=== PATIENT | male | born 2005 | race Caucasian/White ===

== ENCOUNTER 2024-07-21 13:43 | Observation (INO) ==
--- NOTE | 2024-07-21 14:03 | Emergency Department Note ---
Impression & Plan Acute appendicitis, Abdominal pain, RLQ, Leukocytosis, Fever ED Provider Note HISTORY OF PRESENT ILLNESS: Patient is a 18-year-old male presenting with right lower quadrant abdominal pain and fever. Patient reports that yesterday he was having pain around his bellybutton that his since seem to go to his right lower quadrant. He states he also has pain into his right low back. He states the pain was constant since yesterday. He developed a fever at noon. He denies take any Tylenol and ibuprofen today. He denies any history of abdominal surgeries. Denies any chest pain or shortness of breath. He does report nausea. He had vomiting and diarrhea yesterday with the onset of symptoms. Last p.o. intake was about 1 hour prior to arrival at around 1300. ROS: as above PHYSICAL EXAM: Constitutional: Patient appears in no acute distress. HENT: Head: Normocephalic and atraumatic. Eyes: EOMI, PERRL Mouth/Throat: Mucous membranes moist. Neck: Trachea midline. Neck supple. Cardiovascular: Tachycardic with regular rhythm. No murmurs, rubs or gallops. Intact distal pulses. Pulmonary/Chest: No respiratory distress. Breath sounds clear and equal bilaterally. No wheezes or rales. Abdominal: Abdomen soft, no rebound or guarding. RLQ TTP Musculoskeletal: No edema, tenderness or deformity noted. Skin: Warm and dry. No rash, erythema, pallor or cyanosis Psychiatric: Appropriate mood and affect for situation. Neurological: Alert and keenly responsive. CN II-XII grossly intact, moving all extremities equally and fully. MDM: - Vitals signs showed tachycardia and fever. - History obtained via patient. History as above. - Chronic conditions affecting care: none - Differential diagnoses include, but are not limited to: Aortic aneurysm; appendicitis; diverticulitis; inguinal hernia; testicular torsion; ureteral calculi - Order placed for continuous cardiac monitoring. At this time, monitor showed rate of 75 bpm with normal sinus rhythm, per my interpretation. - External medical records reviewed. - Laboratory workup interpreted by myself showed leukocytosis (WBC 16.59) with neutrophilic predominance; normal PT/INR; stable electrolytes - UA negative for infection. Noted to have ketonuria. - Viral respiratory panel negative - CT abdomen/pelvis with IV contrast showed evidence of acute appendicitis with an appendicolith, per my interpretation. Radiology agrees with acute appendicitis with the appendicolith measuring 1.4 cm. Note that there is air within the appendiceal lumen secondary to necrosis. - Patient given 4 mg IV zofran, 500 cc NS and 1g IV tylenol. Given IV zosyn for antibiotic coverage. - Discussed case with Kalie Jacques PA-C on for general surgery at 15:00. She reviewed case with her attending, Dr. Linton. They will be down to evaluate the patient. - Patient to be taken to OR for appendectomy with general surgery service. ASSESSMENT AND PLAN: Diagnosis: acute appendicitis; Right lower quadrant abdominal pain; leukocytosis; fever Plan: to OR Past Med/Surg History Problem List (Updated 07/21/24 @ 15:39 by Alban Linton MD) Fever (Acute) Leukocytosis (Acute) Abdominal pain, RLQ (Acute) Acute appendicitis (Acute) Social History Smoking Status: Never smoker Preferred Language: Kazakh Feels Safe at Home: Yes Allergies Allergies Allergy/AdvReac Type Severity Reaction Status Date / Time No Known Allergies Allergy Unverified 07/21/24 14:09 Home Meds Home Medications Medication Instructions Recorded Confirmed No Known Home Medications 07/21/24 07/21/24 Results & Data (ED) Vital Signs Vital Signs - 24 hr 07/21/24 13:47 07/21/24 14:09 07/21/24 14:21 Temperature 37.2 C 38.6 C H Temperature Source Temporal Artery Scan Oral Pulse Rate 119 H 86 Pulse Rate [Apical] 93 H Pulse Rhythm Regular Respiratory Rate 18 18 20 Respiratory Effort / Characteristics Non-Labored Spontaneous Non-Labored Respiratory Depth Normal Normal Respiratory Pattern Regular Blood Pressure 121/77 Blood Pressure [Left Arm] 102/60 Blood Pressure Mean 91 Blood Pressure Mean [Left Arm] 74 Blood Pressure Position Sitting Pulse Oximetry 94 96 97 Oxygen Delivery Method Room Air Room Air Room Air Sepsis Recent Fever Within 48 Hours No Sepsis New/Unexplained Change in Mental Status No Sepsis Action Taken by Nursing No Action Required 07/21/24 15:00 07/21/24 15:22 07/21/24 15:30 Temperature 38.0 C H Temperature Source Oral Pulse Rate 75 Pulse Rate [Apical] 82 79 Pulse Rhythm Respiratory Rate 18 18 Respiratory Effort / Characteristics Respiratory Depth Normal Respiratory Pattern Blood Pressure Blood Pressure [Left Arm] 121/86 118/70 Blood Pressure Mean Blood Pressure Mean [Left Arm] 97 86 Blood Pressure Position Pulse Oximetry 97 97 Oxygen Delivery Method Room Air Room Air Sepsis Recent Fever Within 48 Hours Sepsis New/Unexplained Change in Mental Status Sepsis Action Taken by Nursing Laboratory Data 07/21/24 14:01 07/21/24 14:01 Lab Results 07/21/24 07/21/24 07/21/24 Range/Units 13:56 14:01 14:02 WBC 16.59 H (4.8-10.8) K/ul RBC 4.80 (4.70-6.10) M/uL Hgb 14.3 (14.0-18.0) g/dl Hct 41.6 L (42.0-52.0) % MCV 86.7 (80.0-100.0) fL MCH 29.8 (25.0-34.0) pg MCHC 34.4 (32.0-36.0) g/dL RDW Std Deviation 39.4 (36.4-46.3) fL RDW Coeff of Dwayne 12.4 (11.5-14.5) % Plt Count 260 (130-400) K/uL MPV 10.1 (9.4-12.4) fL Immature Gran % (Auto) 0.4 % Neut % (Auto) 87.4 % Lymph % (Auto) 3.7 % [place] % (Auto) 8.4 % Eos % (Auto) 0.0 % Baso % (Auto) 0.1 % Neut # (Auto) 14.50 H (1.40-6.50) K/uL Lymph # (Auto) 0.62 L (1.20-3.40) K/uL [place] # (Auto) 1.39 H (0.11-0.59) K/uL Eos # (Auto) 0.00 (0.00-0.50) K/uL Baso # (Auto) 0.02 (0.00-0.20) K/uL Immature Gran # (Auto) 0.06 (0.01-0.20) K/uL PT 12.0 (9.0-12.0) Seconds INR 1.1 (0.9-1.1) Sodium 138 (136-145) mmol/L Potassium 3.9 (3.5-5.1) mmol/L Chloride 100 (98-107) mmol/L Carbon Dioxide 27 (21-32) mmol/L Anion Gap 11 (3-11) BUN 20 (6-23) mg/dl Creatinine 1.08 (0.6-1.4) mg/dl Est Cr Clr Drug Dosing 94.6 ml/min eGFR 100.75 BUN/Creatinine Ratio 18.5 (10-20) Glucose 116 H (70-99(Fasting)) mg/dl Lactate 1.4 (0.4-2.0) mmol/L Calcium 10.2 (8.6-10.3) mg/dl Total Bilirubin 1.2 H (0.2-1.0) mg/dl AST 19 (13-39) U/L ALT 14 (7-52) U/L Alkaline Phosphatase 58 (34-104) U/L Total Protein 8.6 H (6.0-8.3) gm/dl Albumin 5.5 H (3.4-5.0) gm/dl Globulin 3.1 (2.5-4.0) gm/dl Albumin/Globulin Ratio 1.8 (0.9-2) Lipase 8 L (11-82) U/L Urine Color Yellow Urine Appearance Clear (Clear) Urine pH 7.0 (4.5-7.5) Ur Specific [place] 1.033 H (1.000-1.030) Urine Protein 1+ H (Negative) Urine Glucose (UA) Negative (Negative) Urine Ketones 3+ H (Negative) Urine Blood Negative (Negative) Urine Nitrite Negative (Negative) Urine Bilirubin Negative (Negative) Urine Urobilinogen Negative (Negative) Ur Leukocyte Esterase Negative (Negative) Urine WBC (Auto) 0-5 (0-5) /hpf Urine RBC (Auto) 0-2 (0-2) /hpf U Hyaline Cast (Auto) 0-2 (0-2) /lpf U Epithel Cells (Auto) 0-2 (0-2) /hpf Urine Bacteria (Auto) None Seen (None Seen) Adenovirus (PCR) Not Detected (NotDetected) B. pertussis DNA (PCR) Not Detected (NotDetected) B.parapertussis DNA PCR Not Detected (NotDetected) C. pneumoniae DNA (PCR) Not Detected (NotDetected) Coronavirus OC43 (PCR) Not Detected (NotDetected) Coronavirus HKU1 (PCR) Not Detected (NotDetected) Coronavirus 229E (PCR) Not Detected (NotDetected) SARS-CoV-2 (PCR) Not Detected (NotDetected) Coronavirus NL63 (PCR) Not Detected (NotDetected) Human Metapneumovir PCR Not Detected (NotDetected) Influenza Type A (PCR) Not Detected (NotDetected) Influenza Type B (PCR) Not Detected (NotDetected) M. pneumoniae (PCR) Not Detected (NotDetected) Parainfluenza 1 (PCR) Not Detected (NotDetected) Parainfluenza 2 (PCR) Not Detected (NotDetected) Parainfluenza 3 (PCR) Not Detected (NotDetected) Parainfluenza 4 (PCR) Not Detected (NotDetected) RSV (PCR) Not Detected (NotDetected) Entero/Rhino (PCR) Not Detected (NotDetected) Administered Medications Discontinued Medications Acetaminophen (Ofirmev) 1,000 mg in 100 mls @ 400 mls/hr IV NOW STA Stop: 07/21/24 14:17 Last Infusion: 07/21/24 14:36 Dose: Infused Documented By: Admin: 07/21/24 14:10 Dose: 400 mls/hr Documented By: AURY Sodium Chloride (Nss) 500 mls @ 999 mls/hr IV .Q31M ONE Stop: 07/21/24 14:33 Last Infusion: 07/21/24 15:10 Dose: Infused Documented By: Admin: 07/21/24 14:10 Dose: 999 mls/hr Documented By: AURY Piperacillin Sod/Tazobactam Sod (Zosyn) 4.5 gm in 100 mls @ 200 mls/hr IV NOW ONE; Protocol Stop: 07/21/24 15:25 Last Admin: 07/21/24 15:06 Dose: 200 mls/hr Documented By: CRAIG Ioversol (Optiray 320 100ml) 93 ml IV ONCE ONE Stop: 07/21/24 14:50 Last Admin: 07/21/24 14:49 Dose: 93 ml Documented By: ARIANA Ondansetron HCl (Ondansetron Inj 2 Mg/Ml 2 Ml Vial) 4 mg IV NOW STA Stop: 07/21/24 14:04 Last Admin: 07/21/24 14:10 Dose: 4 mg Documented By: AURY Imaging Data Radiologist's Impression: Abdomen/Pelvis CT 07/21/24 14:[address] WITH IV CONTRAST CT DOSE: 421.44 mGy.cm HISTORY: Acute right lower quadrant abdominal pain RLQ abd pain TECHNIQUE: Multiaxial CT images of the abdomen and pelvis were performed following the IV administration of rOptiray, A dose lowering technique was utilized adhering to the principles of ALARA. COMPARISON STUDY: None. FINDINGS: The lung bases are clear. The liver, spleen, gallbladder, pancreas, kidneys, and adrenal glands are within normal limits. Urinary bladder wall thickening with partial distention. Trace pelvic ascites. Probable thickening of the base of the cecum. There is a 1.4 cm proximal appendicolith. The appendix is markedly dilated measuring up to 2 cm with wall thickening and hyperemia with adjacent inflammatory stranding. The appendix is air and fluid filled. No drainable fluid collections. There is an additional amount luminal subcentimeter appendicolith. No suspicious lytic or blastic osseous lesions. IMPRESSION: 1. Acute appendicitis with appendicoliths measuring up to 1.4 cm. Air within the appendiceal lumen is likely secondary to necrosis. 2. No bowel obstruction, pneumoperitoneum or abscess. 3. Trace reactive ascites. ACT 112: Negative or not required by law. The above report was generated using voice recognition software. It may contain grammatical, syntax or spelling errors. Electronically signed by: Meño Correa M.D. 07/21/2024 3:22 PM Discharge Plan Visit Data Chief Complaint: Flu Like Symptoms Stated Complaint: FEVER, VOMITING, ABD/BACK PAIN ED Provider: Anabela Milligan Discharge Problem: Acute appendicitis, Abdominal pain, RLQ, Leukocytosis, Fever Patient Disposition: Admitted As Inpatient Discharge Instructions Interventions: ED Discharge Assessment Last Done: 07/21/24 15:50 Discharge Problem: Acute appendicitis Qualifiers: Acute appendicitis type: with localized peritonitis Appendicitis gangrene presence: with gangrene Appendicitis perforation presence: without perforation A ppendicitis abscess presence: without abscess Qualified Code(s): K35.31 - Acute appendicitis with localized peritonitis and gangrene, without perforation
[2024-07-21] MEDS: ONDANSETRON INJ 2 MG/ML 2 ML VIAL IV STA (14:10)
[2024-07-21] MEDS: SODIUM CHLORIDE 0.9% 500 ML IV ONE (14:10)
[2024-07-21] MEDS: ACETAMINOPHEN 1,000 MG/100 ML VIAL IV STA (14:10)
[2024-07-21 14:15] LABS: Appearance Urine Clear (Clear); Bacteria Urine Automated None Seen (None Seen); Bilirubin Urine Negative (Negative); Blood Urine Negative (Negative); Cast Urine Automated 0-2 /lpf (0-2); Color Urine Yellow; Epithelial Cell Urine Auto 0-2 /hpf (0-2); Glucose Urine UA Negative (Negative); Ketones Urine 3+ (Negative); Leukocyte Esterase Urine Negative (Negative); Nitrite Urine Negative (Negative); Protein Urine 1+ (Negative); RBC Urine Automated 0-2 /hpf (0-2); Specific Gravity Urine 1.033 (1.000-1.030); Urobilinogen Urine Negative (Negative); WBC Urine Automated 0-5 /hpf (0-5)
[2024-07-21 14:20] LABS: Basophils # (auto) 0.02 K/uL (0.00-0.20); Basophils % (auto) 0.1 %; Hematocrit (blood only) 41.6 % (42.0-52.0); Hemoglobin 14.3 g/dl (14.0-18.0); Immature Granulocytes # (auto) 0.06 K/uL (0.01-0.20); Immature Granulocytes % (auto) 0.4 %; Lymphocytes # (auto) 0.62 K/uL (1.20-3.40); Lymphocytes % (auto) 3.7 %; Mean Corpuscular Hemoglobin 29.8 pg (25.0-34.0); Mean Corpuscular Hgb Conc 34.4 g/dL (32.0-36.0); Mean Corpuscular Volume 86.7 fL (80.0-100.0); Mean Platelet Volume 10.1 fL (9.4-12.4); Monocytes # (auto) 1.39 K/uL (0.11-0.59); Monocytes % (auto) 8.4 %; Neutrophils % (auto) 87.4 %; Platelet Count 260 K/uL (130-400); RDW Coefficient of Variation 12.4 % (11.5-14.5); RDW Standard Deviation 39.4 fL (36.4-46.3); White Blood Count 16.59 K/ul (4.8-10.8)
[2024-07-21 14:43] LABS: Albumin Globulin Ratio 1.8 (0.9-2); Albumin Level 5.5 gm/dl (3.4-5.0); BUN Creatinine Ratio 18.5 (10-20); Bilirubin,Total 1.2 mg/dl (0.2-1.0); Calcium 10.2 mg/dl (8.6-10.3); Creatinine Clr Calc Pharmacy 94.6 ml/min; Globulin 3.1 gm/dl (2.5-4.0); Potassium 3.9 mmol/L (3.5-5.1); Total Protein 8.6 gm/dl (6.0-8.3)
[2024-07-21 14:44] LABS: INR 1.1 (0.9-1.1)
[2024-07-21] MEDS: OPTIRAY 320 100ml IV ONE (14:49)
[2024-07-21] MEDS: PIPERACILLIN/TAZOBACTAM 4.5 GM/100 ML BAG IV ONE (15:06)
[2024-07-21 15:18] LABS: Adenovirus PCR Not Detected (NotDetected); Bordetella parapertussis PCR Not Detected (NotDetected); Bordetella pertussis PCR Not Detected (NotDetected); Chlamydia pneumoniae PCR Not Detected (NotDetected); Coronavirus 229E PCR Not Detected (NotDetected); Coronavirus CoV-2 (COVID19)PCR Not Detected (NotDetected); Coronavirus HKU1 PCR Not Detected (NotDetected); Coronavirus NL63 PCR Not Detected (NotDetected); Coronavirus OC43PCR Not Detected (NotDetected); Human Metapneumovirus PCR Not Detected (NotDetected); Influenza A PCR Not Detected (NotDetected); Influenza B PCR Not Detected (NotDetected); Mycoplasma pneumoniae PCR Not Detected (NotDetected); Parainfluenza Virus 1 PCR Not Detected (NotDetected); Parainfluenza Virus 2 PCR Not Detected (NotDetected); Parainfluenza Virus 3 PCR Not Detected (NotDetected); Parainfluenza Virus 4 PCR Not Detected (NotDetected); Respiratory Syncytial VirusPCR Not Detected (NotDetected); Rhinovirus/Enterovirus PCR Not Detected (NotDetected)
--- NOTE | 2024-07-21 15:23 | CT Scan Report ---
ABDOMEN AND PELVIS CT WITH IV CONTRAST CT DOSE: 421.44 mGy.cm HISTORY: Acute right lower quadrant abdominal pain RLQ abd pain TECHNIQUE: Multiaxial CT images of the abdomen and pelvis were performed following the IV administrat ion of rOptiray, A dose lowering technique was utilized adhering to the principles of ALARA. COMPARISON STUDY: None. FINDINGS: The lung bases are clear. The liver, spleen, gallbladder, pancreas, kidneys, and adrenal gl ands are within normal limits. Urinary bladder wall thickening with partial distention. Trace pelvic ascites. Probable thickening of the base of the cecum. There is a 1.4 cm proximal appendicolith. The appendix is markedly dilated measuring up to 2 cm with wall thickening and hyperemia with adjacent in flammatory stranding. The appendix is air and fluid filled. No drainable fluid collections. There is an additional amount luminal subcentimeter appendicolith. No suspicious lytic or blastic osseous lesi ons. IMPRESSION: 1. Acute appendicitis with appendicoliths measuring up to 1.4 cm. Air within the appendiceal lumen is likely secondary to necrosis. 2. No bowel obstruction, pneumoperitoneum or abscess. 3. Trace reactive ascites. ACT 112: Negative or not required by law. The above report was generated using voice recognition software. It may contain grammatical, syntax o r spelling errors. Electronically signed by: Meño Correa M.D. 07/21/2024 3:22 PM
--- NOTE | 2024-07-21 15:38 | History & Physical Report ---
Date of Service July 21, 2024 Assessment & Plan (1) Acute appendicitis: Plan 18-year-old gentleman with acute appendicitis. We discussed the risks and benefits of a laparoscopic appendectomy. All his questions were answered and he is agreeable to proceed. We will take him to the operating room at the earliest convenience. History of Present Illness Primary Care Provider: [facility] 18-year-old Gentleman with a 1 day history of severe right-sided abdominal pain. He did have nausea and vomiting yesterday. Positive fever today. He has not eaten anything today. CT scan demonstrates acute appendicitis with large appendicolith. Allergies Allergy/AdvReac Type Severity Reaction Status Date / Time No Known Allergies Allergy Unverified 07/21/24 14:09 Home Medications Medication Instructions Recorded Confirmed Type No Known Home Medications 07/21/24 07/21/24 History Past Med/Surg History Problem List (Updated 07/21/24 @ 15:39 by Ablan Linton MD) Fever (Acute) Leukocytosis (Acute) Abdominal pain, RLQ (Acute) Acute appendicitis (Acute) Social History Smoking Status: Never smoker Preferred Language: Arabic Feels Safe at Home: Yes Review of Systems Review of Systems: All systems reviewed & are unremarkable except as noted in HPI & below Physical Exam Constitutional: WD/WN, vitals as above Eyes: PERRL, conjunctivae normal, anicteric sclerae Neck: trachea midline, no thyromegaly Respiratory: normal respiratory effort; no respiratory distress and no labored breathing Cardiovascular: Rate/Rhythm: regular rate and regular rhythm Gastrointestinal (Abdomen): Inspection/Auscultation: abdomen normal to inspection; abdomen not distended Percussion/Palpation: + abdomen tender ( RLQ) and abdomen soft; no guarding and abdomen not rigid Skin: no rashes, warm and dry Psychiatric: A+Ox3, euthymic affect Results & Data Results & Data Vital Signs (Past 12 Hours) Vital Signs Temp Pulse Pulse Resp BP BP Pulse Ox 07/21/24 15:22 75 07/21/24 15:00 38.0 C H 82 18 121/86 97 07/21/24 14:21 86 20 97 07/21/24 14:09 38.6 C H 93 H 18 102/60 96 07/21/24 13:47 37.2 C 119 H 18 121/77 94 O2 Del Method 07/21/24 15:22 07/21/24 15:00 Room Air 07/21/24 14:21 Room Air 07/21/24 14:09 Room Air 07/21/24 13:47 Room Air Laboratory Results 07/21/24 07/21/24 07/21/24 Range/Units 14:02 14:01 13:56 WBC 16.59 H (4.8-10.8) K/ul RBC 4.80 (4.70-6.10) M/uL Hgb 14.3 (14.0-18.0) g/dl Hct 41.6 L (42.0-52.0) % MCV 86.7 (80.0-100.0) fL MCH 29.8 (25.0-34.0) pg MCHC 34.4 (32.0-36.0) g/dL RDW Std Deviation 39.4 (36.4-46.3) fL RDW Coeff of Dwayne 12.4 (11.5-14.5) % Plt Count 260 (130-400) K/uL MPV 10.1 (9.4-12.4) fL Immature Gran % (Auto) 0.4 % Neut % (Auto) 87.4 % Lymph % (Auto) 3.7 % [place] % (Auto) 8.4 % Eos % (Auto) 0.0 % Baso % (Auto) 0.1 % Neut # (Auto) 14.50 H (1.40-6.50) K/uL Lymph # (Auto) 0.62 L (1.20-3.40) K/uL [place] # (Auto) 1.39 H (0.11-0.59) K/uL Eos # (Auto) 0.00 (0.00-0.50) K/uL Baso # (Auto) 0.02 (0.00-0.20) K/uL Immature Gran # (Auto) 0.06 (0.01-0.20) K/uL PT 12.0 (9.0-12.0) Seconds INR 1.1 (0.9-1.1) Sodium 138 (136-145) mmol/L Potassium 3.9 (3.5-5.1) mmol/L Chloride 100 (98-107) mmol/L Carbon Dioxide 27 (21-32) mmol/L Anion Gap 11 (3-11) BUN 20 (6-23) mg/dl Creatinine 1.08 (0.6-1.4) mg/dl Est Cr Clr Drug Dosing 94.6 ml/min eGFR 100.75 BUN/Creatinine Ratio 18.5 (10-20) Glucose 116 H (70-99(Fasting)) mg/dl Lactate 1.4 (0.4-2.0) mmol/L Calcium 10.2 (8.6-10.3) mg/dl Total Bilirubin 1.2 H (0.2-1.0) mg/dl AST 19 (13-39) U/L ALT 14 (7-52) U/L Alkaline Phosphatase 58 (34-104) U/L Total Protein 8.6 H (6.0-8.3) gm/dl Albumin 5.5 H (3.4-5.0) gm/dl Globulin 3.1 (2.5-4.0) gm/dl Albumin/Globulin Ratio 1.8 (0.9-2) Lipase 8 L (11-82) U/L Urine Color Yellow Urine Appearance Clear (Clear) Urine pH 7.0 (4.5-7.5) Ur Specific [place] 1.033 H (1.000-1.030) Urine Protein 1+ H (Negative) Urine Glucose (UA) Negative (Negative) Urine Ketones 3+ H (Negative) Urine Blood Negative (Negative) Urine Nitrite Negative (Negative) Urine Bilirubin Negative (Negative) Urine Urobilinogen Negative (Negative) Ur Leukocyte Esterase Negative (Negative) Urine WBC (Auto) 0-5 (0-5) /hpf Urine RBC (Auto) 0-2 (0-2) /hpf U Hyaline Cast (Auto) 0-2 (0-2) /lpf U Epithel Cells (Auto) 0-2 (0-2) /hpf Urine Bacteria (Auto) None Seen (None Seen) Adenovirus (PCR) Not Detected (NotDetected) B. pertussis DNA (PCR) Not Detected (NotDetected) B.parapertussis DNA PCR Not Detected (NotDetected) C. pneumoniae DNA (PCR) Not Detected (NotDetected) Coronavirus OC43 (PCR) Not Detected (NotDetected) Coronavirus HKU1 (PCR) Not Detected (NotDetected) Coronavirus 229E (PCR) Not Detected (NotDetected) SARS-CoV-2 (PCR) Not Detected (NotDetected) Coronavirus NL63 (PCR) Not Detected (NotDetected) Human Metapneumovir PCR Not Detected (NotDetected) Influenza Type A (PCR) Not Detected (NotDetected) Influenza Type B (PCR) Not Detected (NotDetected) M. pneumoniae (PCR) Not Detected (NotDetected) Parainfluenza 1 (PCR) Not Detected (NotDetected) Parainfluenza 2 (PCR) Not Detected (NotDetected) Parainfluenza 3 (PCR) Not Detected (NotDetected) Parainfluenza 4 (PCR) Not Detected (NotDetected) RSV (PCR) Not Detected (NotDetected) Entero/Rhino (PCR) Not Detected (NotDetected) Diagnostic Findings ABDOMEN AND PELVIS CT WITH IV CONTRAST CT DOSE: 421.44 mGy.cm HISTORY: Acute right lower quadrant abdominal pain RLQ abd pain TECHNIQUE: Multiaxial CT images of the abdomen and pelvis were performed following the IV administration of rOptiray, A dose lowering technique was utilized adhering to the principles of ALARA. COMPARISON STUDY: None. FINDINGS: The lung bases are clear. The liver, spleen, gallbladder, pancreas, kidneys, and adrenal glands are within normal limits. Urinary bladder wall thickening with partial distention. Trace pelvic ascites. Probable thickening of the base of the cecum. There is a 1.4 cm proximal appendicolith. The appendix is markedly dilated measuring up to 2 cm with wall thickening and hyperemia with adjacent inflammatory stranding. The appendix is air and fluid filled. No drainable fluid collections. There is an additional amount luminal subcentimeter appendicolith. No suspicious lytic or blastic osseous lesions. IMPRESSION: 1. Acute appendicitis with appendicoliths measuring up to 1.4 cm. Air within the appendiceal lumen is likely secondary to necrosis. 2. No bowel obstruction, pneumoperitoneum or abscess. 3. Trace reactive ascites. ACT 112: Negative or not required by law. The above report was generated using voice recognition software. It may contain grammatical, syntax or spelling errors. Electronically signed by: Meño Correa M.D. 07/21/2024 3:22 (1) Acute appendicitis Acute appendicitis type: with localized peritonitis Appendicitis gangrene presence: with gangrene Appendicitis perforation presence: without perforation Appendicitis abscess presence: without abscess Qualified Code(s): K35.31 - Acute appendicitis with localized peritonitis and gangrene, without perforation
[2024-07-21] MEDS ORDERED: fentaNYL citrate PF 100 MCG/2 ML VIAL IV PRN (15:57)
[2024-07-21] MEDS ORDERED: ONDANSETRON INJ 2 MG/ML 2 ML VIAL IV PRN ×2 (15:57→18:32)
[2024-07-21] MEDS ORDERED: ATROPINE SULFATE 0.1 MG/ML 10ML SYR IV PRN (15:57)
[2024-07-21] MEDS ORDERED: PROMETHAZINE HCL 6.25 MG in SODIUM CHLORIDE 0.9% 50 ML IV PRN (15:57)
[2024-07-21] MEDS ORDERED: HYDROmorphone INJ 1 MG/ML SYRINGE IV PRN (15:57)
[2024-07-21] MEDS ORDERED: ePHEDrine sulfate 50 MG/ML AMP IV PRN (15:57)
--- NOTE | 2024-07-21 15:59 | Anesthesiology Consultation ---
Date of Service July 21, 2024 Assessment & Plan (1) Encounter for pre-operative examination: Chart Review Chart Review: Acceptable Risk for Surgery and Patient NOT seen in Pre Admission Testing Consults Requested none History Surgery Operation Date: 07/21/24 09:40 Proposed Procedures p Laparoscopic Appendectomy - Alban Linton MD Height/Weight Height: 5 ft 7 in Weight: 61.3 kg Allergies Allergy/AdvReac Type Severity Reaction Status Date / Time No Known Allergies Allergy Unverified 07/21/24 14:09 Medications Home Medications Medication Instructions Recorded Confirmed Last Taken No Known Home Medications 07/21/24 07/21/24 Unknown Past Medical History Medical History (Updated 07/21/24 @ 15:59 by Rojelio Bolaños MD) Encounter for pre-operative examination Fever Abdominal pain, RLQ Acute appendicitis Social History Smoking Status: Never smoker Physical Exam Vital Signs Last Vital Signs Temp 38.0 C H 07/21/24 15:00 Pulse 79 07/21/24 15:30 Resp 18 07/21/24 15:30 BP 118/70 07/21/24 15:30 Pulse Ox 97 07/21/24 15:30 O2 Del Method Room Air 07/21/24 15:30 Testing Laboratory Results 07/21/24 14:01 07/21/24 14:01 PT 12.0 Seconds (9.0-12.0) 07/21/24 14:01 INR 1.1 (0.9-1.1) 07/21/24 14:01 Urine Color Yellow 07/21/24 13:56 Urine Appearance Clear (Clear) 07/21/24 13:56 Urine pH 7.0 (4.5-7.5) 07/21/24 13:56 Ur Specific [place] 1.033 (1.000-1.030) H 07/21/24 13:56 Urine Protein 1+ (Negative) H 07/21/24 13:56 Urine Glucose (UA) Negative (Negative) 07/21/24 13:56 Urine Ketones 3+ (Negative) H 07/21/24 13:56 Urine Nitrite Negative (Negative) 07/21/24 13:56 Ur Leukocyte Esterase Negative (Negative) 07/21/24 13:56 Urine WBC (Auto) 0-5 /hpf (0-5) 07/21/24 13:56 Urine RBC (Auto) 0-2 /hpf (0-2) 07/21/24 13:56 U Hyaline Cast (Auto) 0-2 /lpf (0-2) 07/21/24 13:56 U Epithel Cells (Auto) 0-2 /hpf (0-2) 07/21/24 13:56 Urine Bacteria (Auto) None Seen (None Seen) 07/21/24 13:56 Other Testing ABDOMEN AND PELVIS CT WITH IV CONTRAST CT DOSE: 421.44 mGy.cm HISTORY: Acute right lower quadrant abdominal pain RLQ abd pain TECHNIQUE: Multiaxial CT images of the abdomen and pelvis were performed following the IV administration of rOptiray, A dose lowering technique was utilized adhering to the principles of ALARA. COMPARISON STUDY: None. FINDINGS: The lung bases are clear. The liver, spleen, gallbladder, pancreas, kidneys, and adrenal glands are within normal limits. Urinary bladder wall thickening with partial distention. Trace pelvic ascites. Probable thickening of the base of the cecum. There is a 1.4 cm proximal appendicolith. The appendix is markedly dilated measuring up to 2 cm with wall thickening and hyperemia with adjacent inflammatory stranding. The appendix is air and fluid filled. No drainable fluid collections. There is an additional amount luminal subcentimeter appendicolith. No suspicious lytic or blastic osseous lesions. IMPRESSION: 1. Acute appendicitis with appendicoliths measuring up to 1.4 cm. Air within the appendiceal lumen is likely secondary to necrosis. 2. No bowel obstruction, pneumoperitoneum or abscess. 3. Trace reactive ascites.
[2024-07-21] MEDS ORDERED: DEXAMETHASONE SOD INJ 4 MG/ML VIAL ONE (16:02)
[2024-07-21] MEDS ORDERED: MIDAZOLAM HCL 1 MG/ML 2ML VIAL ONE (16:02)
[2024-07-21] MEDS ORDERED: ONDANSETRON INJ 2 MG/ML 2 ML VIAL ONE (16:02)
[2024-07-21] MEDS ORDERED: fentaNYL citrate PF 100 MCG/2 ML VIAL ONE (16:02)
[2024-07-21] MEDS ORDERED: LIDOCAINE 2% 2 ML VIAL/AMP(20MG/ML) INFIL ONE (16:02)
[2024-07-21] MEDS ORDERED: PROPOFOL IV EMULSION 10 MG/ML 20 ML VIAL IV ONE (16:02)
[2024-07-21] MEDS ORDERED: SUGAMMADEX SODIUM 200 MG/2 ML VIAL IV ONE (17:00)
[2024-07-21] MEDS: BUPIVACAINE/EPINEPHRINE 0.5% MPF 1:200,000 30 ML VIAL ONE (17:03)
--- NOTE | 2024-07-21 17:08 | Post Operative Brief Note ---
Immediate Post Op Note Date of Surgery July 21, 2024 Pre & Post Diagnosis Operation Date: 07/21/24 09:40 Preop: Acute appendicitis Postop: Acute appendicitis I identified the patient and participated in the time-out.: Yes Procedure Operation Date: 07/21/24 09:40 laparoscopic appendectomy Surgeon Alban Linton MD [employer] Technician JAVAD Jacques assisted with tissue retraction, camera op, closure Estimated Blood Loss 5 Findings Consistent with Post-Op Diagnosis
--- NOTE | 2024-07-21 17:10 | Operative Report ---
Post Operative Report Pre & Post Diagnosis Operation Date: 07/21/24 09:40 Pre-Op diagnosis: Acute appendicitis Postop diagnosis: Same I identified the patient and participated in the time-out.: Yes Procedure Operation Date: 07/21/24 09:40 laparoscopic appendectomy Surgeon Alban Linton MD Pbx Installer JAVAD Jacques assisted with tissue retraction, camera op, closure Estimated Blood Loss 5 Findings Consistent with Post-Op Diagnosis severe acute appendicitis with gangrenous appendix, no perforation Specimens appendix Drains none Anesthesia Type General Complications none Description of Procedure the patient was taken to the operating room, and placed supine on the operating table. A timeout was performed, perioperative antibiotics were administered, SCD boots were placed. After adequate anesthesia and analgesia was obtained, the abdomen was prepped and draped in the normal sterile fashion. A 1 cm incision was made in the supraumbilical region and carried down to the level of the fascia. A trach hook was used to grasp the fascia and elevated and a varies needle was used to enter the abdominal cavity. The abdomen was insufflated to a pressure of 15 mmHg, and a 5 mm trocar was placed in this location. A 5 mm 30 degree laparoscope was placed into the abdominal cavity, and the abdomen was surveyed. The patient was placed in Trendelenburg and slightly to the left. One 5 mm trocar was placed in the right upper quadrant, and one 12 mm trocar was placed in the left lower quadrant under direct visualization. The right colon was identified and traced down to the cecum. The appendix was identified and elevated anteriorly and medially. A window was created at the base of the appendix with a [place] dissector. The Endo JOSE RAUL stapler was used to transect the appendix at its base through noninflamed tissue, and subsequently the mesoappendix. The appendix was placed in an Endo Catch bag, and removed via the left lower quadrant port site. Attention was turned to hemostasis, which was excellent. The abdomen was copiously irrigated and suctioned free, and again hemostasis was found to be excellent. All trochars removed under direct visualization. The abdomen was desufflated. The fascia in the 12 mm port site was closed with a 0 Vicryl suture. The skin was closed with a running 4-0 Monocryl subcuticular stitch. Dermabond was applied. The patient tolerated the procedure without complication, and was transferred in stable condition to the PACU. All instrument, needle, and sponge counts were correct at the end of the case. My assistant to the president was necessary throughout the procedure for tissue retraction, possible camera operation, and closure of the wounds. I understand that section 1842(b)(7)(D) of the Social Security act generally prohibits Medicare physician fee schedule payment for the services of assistants at surgery in teaching hospitals when qualified residents are available to furnish such services. I certify that the services for which payment is claimed were medically necessary and that no qualified resident was available to perform the services. I further understand that these services are subject to postpayment review by the Medicare carrier. I attest to the content of the Intraoperative Record and any orders documented therein. Any exceptions are noted below.
[2024-07-21] MEDS ORDERED: KETOROLAC 30 MG/ML VIAL IV PRN (18:32)
[2024-07-21] MEDS ORDERED: MoRPHine SULFATE 2 MG/ML CARP IV PRN (18:32)
[2024-07-21] MEDS ORDERED: PROMETHAZINE 12.5 MG/50.5 ML BAG IV PRN (18:32)
[2024-07-21] MEDS ORDERED: oxyCODONE/ACETAMINOPHEN 5mg/325mg TAB PO PRN (18:32)
[2024-07-21] MEDS ORDERED: diphenhydrAMINE Capsule 25 MG CAP PO PRN (18:32)
--- NOTE | 2024-07-21 19:15 | Anesthesiology Progress Note ---
Date of Service July 21, 2024 Anesthesia Post Procedure Vital Signs Vital Signs: Temp Pulse Pulse Pulse Resp BP BP 07/21/24 18:45 36.7 C 84 18 102/67 07/21/24 18:30 75 20 102/59 L 07/21/24 18:00 90 20 107/61 07/21/24 17:55 96 H 20 118/67 07/21/24 17:45 36.7 C 90 12 116/65 07/21/24 17:35 94 H 16 103/63 07/21/24 17:25 36.8 C 90 16 107/62 07/21/24 15:50 37.8 C H 68 12 111/66 07/21/24 15:30 79 18 118/70 07/21/24 15:22 75 07/21/24 15:00 38.0 C H 82 18 121/86 07/21/24 14:21 86 20 07/21/24 14:09 38.6 C H 93 H 18 102/60 07/21/24 13:47 37.2 C 119 H 18 121/77 Pulse Ox O2 Del Method O2 Flow Rate 07/21/24 18:45 97 Nasal Cannula 2 07/21/24 18:30 96 Nasal Cannula 2 07/21/24 18:00 97 Nasal Cannula 2 07/21/24 17:55 97 Nasal Cannula 2 07/21/24 17:45 93 Nasal Cannula 2 07/21/24 17:35 94 Room Air 07/21/24 17:25 100 Oxymask 6 07/21/24 15:50 97 Room Air 07/21/24 15:30 97 Room Air 07/21/24 15:22 07/21/24 15:00 97 Room Air 07/21/24 14:21 97 Room Air 07/21/24 14:09 96 Room Air 07/21/24 13:47 94 Room Air Pain Intensity Right Lower Abdomen: Pain Intensity: 9 Transfer of Care Handoff Completed per policy Notes Mental Status: alert / awake / arousable and participated in evaluation Patient Amnestic to Procedure: Yes Nausea / Vomiting: adequately controlled Pain: adequately controlled Airway Patency, RR, SpO2: stable & adequate BP & HR: stable & adequate Hydration State: stable & adequate Anesthetic Complications: no major complications apparent and Pt Satisfied with anesthetic care
[2024-07-21 23:15] VITALS: RESP 16
[2024-07-22] MEDS: SODIUM CHLORIDE 0.9% 500 ML IV ONE (03:48)
[2024-07-22 05:29] VITALS: PULSE 52; O2SAT 97
[2024-07-22 07:03] VITALS: BP 99/58; TEMP 98.4
[2024-07-22] MEDS: ENOXAPARIN INJ 40 MG/0.4 ML SYR SQ SCH (07:32)
[2024-07-22] MEDS ORDERED: ACETAMINOPHEN 325 MG TAB PO PRN (09:25)
--- NOTE | 2024-07-22 09:28 | Discharge Summary ---
Date of Service July 22, 2024 Admission HPI Per Admitting Provider 18-year-old Gentleman with a 1 day history of severe right-sided abdominal pain. He did have nausea and vomiting yesterday. Positive fever today. He has not eaten anything today. CT scan demonstrates acute appendicitis with large appendicolith. Principal Diagnosis Acute appendicitis Discharge Exam Constitutional WD/WN, vitals as above cooperative and comfortable; no acute distress and not ill appearing Respiratory normal respiratory effort; no respiratory distress and no labored breathing Gastrointestinal (Abdomen) Inspection/Auscultation: abdomen normal to inspection and + abdominal surgical incision (c/d/i with dermabond); abdomen not distended Percussion/Palpation: + abdomen tender (mild at incision sites, more LLQ incision appropriate postop) and abdomen soft; no guarding, abdomen not rigid and abdomen not firm Skin no rashes, warm and dry Psychiatric A+Ox3, euthymic affect Discharge Data Allergies Allergy/AdvReac Type Severity Reaction Status Date / Time No Known Allergies Allergy Unverified 07/21/24 14:09 Procedures Performed Operation Date: 07/21/24 09:40 Actual Procedures p Laparoscopic Appendectomy(Not Applicable) - Alban Linton MD Ordered Studies 07/21/24 14:01 CT Abd and Pelvis [CT abd pelvis IV con only] Stat Hospital Course (1) Acute appendicitis: Plan Patient taken to operating room for laparoscopic appendectomy by Dr. Linton on 07/21/2024. Patient found to have acute gangrenous appendicitis without perforation or abscess. Patient tolerated procedure without difficulty and transferred to med/surg floor for postop care. Diet advanced as tolerated, activity as tolerated, pain management and antiemetics as needed. Blood pressure slightly slow with systolic in 90s overnight and was given 500 cc bolus of NS. Patient asymptomatic and bp normally runs low. Patient was discharged home on POD # 1 in stable condition. Total Time Total Time Spent Total Time Spent (In Minutes): 20 Total Time Includes: Examination of the Patient, Discharge Planning and Medication Reconciliation Discharge Plan Discharge Items Patient Disposition: Home - Self-Care Reason For Visit: FEVER, VOMITING, ABD/BACK PAIN Discharge Diagnosis: Acute appendicitis Activity: Per Instructions section Non-emergency contact: Surgeon Call non-emergency contact if: you have any medication questions, your pain is not controlled, your pain is worsening, your pain is concerning for you, you have a fever, your temperature is above 101, your wound has increased redness, your wound has increased drainage and your wound pain has increased Follow-up/Referrals: Kalie Jacques PA-C [Physician Dural Mechanic] - PCP,NO [Physician] - Diet: Regular Addtl Attending Provider Instructions: Post-Surgical ~Discharge Instructions Activity Recommendations: - lifting limitation: (20 pounds for 2-3 weeks), - exercise/sex/sports limit: (nonstrenuous for 2 weeks), - driving or machine use limit: (none for 1 week or until pain free and no longer taking narcotic pain medication), - Shower/bathe limit: (may shower, no submerging incisions underwater for 10-14 days) Diet: - Resume previous diet SPECIAL CARE INSTRUCTIONS: - May shower. Let water run over area and pat dry. - Leave surgical glue on incisions, this will fall off on its own. - Call the surgeon's office with any questions or concerns - - (ex. temperature higher than 101 degrees F, excessive bleeding or pain). MEDICATIONS: - Resume previous medications unless instructed otherwise by your surgeon. - May alternate extra strength Tylenol and Ibuprofen as needed for mild to moderate pain -650 mg Tylenol every 6 hours as needed - Ibuprofen 600 mg every 6 hours as needed (Take with food) - Percocet 1 every 6 hours, as needed for moderate to severe pain - Recommend taking stool softener (Colace) while taking narcotic pain medication to prevent constipation and straining. Drink plenty of water daily. FOLLOW UP VISIT: - If not already scheduled, please call the office to schedule a two week follow-up appointment. Office number Pending Studies at Discharge: Yes (appendix pathology , will be reviewed at postop visit) Stand-Alone Forms: [employer], Work/School Release, Smoking Cessation Medications and DC Order Prescriptions: New oxycodone-acetaminophen 5-325 mg tablet 1 tab PO Q6H PRN (Reason: pain) Qty: 7 0RF Discharge Orders: Discharge Order (Routine); Ordered 07/22/24 Ordered By: Kalie Jacques Admission Data Admit Date/Time: 07/21/24 17:13 Attending Provider: Alban Linton Admit Provider: Alban Linton Primary Care Provider: [facility]
== END 2024-07-22 10:36 | disposition home or self-care (01) ==
LOC: ED 13:43 → OR 15:50 → PACUINP 15:50 → OR 15:51 → 3N 18:46